=== PATIENT | male | born 1975 | race Caucasian/White ===

== ENCOUNTER 2020-05-22 10:53 | Emergency (ER) | payer OTHER, SELFPAY ==
[2020-05-22] MEDS ORDERED: Ketamine 50 MG/ML (10ML VIAL) ONE (11:13)
[2020-05-22 11:18] LABS: #Lymphocytes 0.9 thou/uL (1.20-3.40); #Monocytes 0.4 thou/uL (0.11-0.59); #Neutrophils 11.1 thou/uL (1.40-6.50); %Basophils 0.3 % (0.0-1.0); %Eosinophils 0.4 % (0.0-10.0); %Lymphocytes 7.2 % (21.0-51.0); %Monocytes 3.3 % (0.0-10.0); %Neutrophils 88.8 % (42.0-75.0); Hemoglobin 17.9 g/dL (14.0-18.0); Mean Corpuscular HGB CONC 36.2 g/dL (32.0-36.0); Mean Platelet Volume 7.4 fL (7.4-10.4); Platelet Count 251 thou/uL (130-400); RBC Distribution Width 12.4 % (11.5-14.5); Red Blood Cell (RBC) Count 5.26 mill/uL (4.70-6.10); White Blood Cell (WBC) Count 12.5 thou/uL (4.8-10.8)
[2020-05-22] MEDS ORDERED: Ondansetron PF 4 MG/2 ML Vial ONE (11:20)
--- NOTE | 2020-05-22 11:23 | RAD ---
XR Ankle Rt 2 View INDICATION: Right ankle injury after foot got caught underneath a cow COMPARISON: None. FINDINGS: Bones: There are mildly displaced fractures involving the medial, lateral and posterior malleolus con sistent with transient bimalleolar ankle fracture. The posterior malleolar component occupies approximately 10-20% of the posterior articular surface is displaced posteriorly. The lateral malleol us fracture fragment is displaced posteriorly and laterally one cortex width. The medial malleolus fracture fragment is displaced posteriorly and medially approximately 1 cm. Ankle mortise: There is posterior lateral dislocation of the talar dome in relationship to the tibial plafond. Talar Dome: Intact. Subtalar joint: Normal. Visualized hindfoot: Normal. Periarticular soft tissues: There is soft tissue swelling surrounding the ankle joint. IMPRESSION: 1. Trimalleolar ankle fracture or dislocation
[2020-05-22 11:25] LABS: Prothrombin Time 13.2 sec (12.0-14.7)
[2020-05-22 11:26] LABS: PTT 26.9 sec (22.9-36.1)
--- NOTE | 2020-05-22 11:36 | RAD ---
XR Ankle Rt 2 View INDICATION: Post reduction radiographs of the right ankle fracture dislocation COMPARISON: Prior right ankle radiographs performed at 11:01 AM FINDINGS: Bones: Trimalleolar ankle fracture demonstrates improved alignment Ankle mortise: The talar dome appears to now be seated under knee the tibial plafond. Talar Dome: Intact. Subtalar joint: Normal. Visualized hindfoot: Normal. Periarticular soft tissues: Soft tissue swelling is seen surrounding the right ankle. IMPRESSION: 1. Interval reduction of a trimalleolar fracture dislocation.
[2020-05-22 11:41] LABS: ALT (SGPT) 37 U/L (8-55); AST (SGOT) 20 U/L (5-34); Albumin 4.9 g/dL (3.5-5.0); Alkaline Phosphatase 69 U/L (40-110); Anion Gap 15 mmol/L (10-20); BUN (Urea Nitrogen) 14 mg/dL (8.9-20.6); Bilirubin, Total 0.6 mg/dL (0.2-1.2); Calc. Creatinine Clearance 0 mL/min (70-130); Calcium 9.7 mg/dL (7.8-10.44); Carbon Dioxide 25 mmol/L (22-29); Chloride 103 mmol/L (98-107); Glucose 133 mg/dL (70-105); Potassium 4.6 mmol/L (3.5-5.1); Protein, Total 7.9 g/dL (6.0-8.3); Sodium 138 mmol/L (136-145)
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
[2020-05-22] MEDS ORDERED: Boostrix 0.5 ML (Tdap) VIAL ONE (12:54)
== END 2020-05-22 13:48 | disposition home or self-care (01) ==
LOC: ERS 10:53
DX: S82.851A Displaced trimalleolar fracture of right lower leg, initial encounter for closed fracture (principal); X58.XXXA Exposure to other specified factors, initial encounter
CPT/HCPCS: 27818; 71045; 80053; 85025; 85610; 85730; 90471; 90715; 93005; 96374; 99152; G0390; J2405

== ENCOUNTER 2020-06-04 10:27 | Day surgery (SDC) | payer OTHER ==
[2020-06-03 14:37] VITALS: BMI 32.1
[~2020-06-04 10:27] MED LIST: Bupivacaine HCl 0.5%/Epinephrine 1:200,000/PF 30 ml Vial ONE; Dexamethasone 20 MG/5 ML VIAL ONE; Ketorolac Tromethamine 30 MG/ML VIAL ONE; Lidocaine 1% PF 5 ML VIAL ONE; Metoclopramide HCl 10 MG/2 ML VIAL ONE; Ondansetron PF 4 MG/2 ML Vial ONE; PROPOFOL 200 MG/20 ML VIAL ONE
[2020-06-04 11:16] LABS: #Lymphocytes 1.6 thou/uL (1.20-3.40); #Monocytes 0.3 thou/uL (0.11-0.59); #Neutrophils 4.9 thou/uL (1.40-6.50); %Basophils 0.7 % (0.0-1.0); %Eosinophils 0.7 % (0.0-10.0); %Lymphocytes 23.4 % (21.0-51.0); %Monocytes 4.7 % (0.0-10.0); %Neutrophils 70.6 % (42.0-75.0); Hemoglobin 18.4 g/dL (14.0-18.0); Mean Corpuscular HGB CONC 34.2 g/dL (32.0-36.0); Mean Corpuscular Hemoglobin 31.5 pg (27.0-31.0); Platelet Count 336 thou/uL (130-400); RBC Distribution Width 12.2 % (11.5-14.5); Red Blood Cell (RBC) Count 5.85 mill/uL (4.70-6.10); White Blood Cell (WBC) Count 6.9 thou/uL (4.8-10.8)
[2020-06-04] MEDS ORDERED: Fentanyl 100 MCG/2 ML VIAL ONE ×2 (11:31→12:54)
[2020-06-04] MEDS ORDERED: Midazolam HCl 2 mg/2 ml Vial ONE (11:31)
[2020-06-04] MEDS ORDERED: Lidocaine 1% (PF) 30 ML VIAL ONE (11:32)
[2020-06-04 12:03] LABS: SARS-CoV-2 NAA Rapid Test Not Detected (NotDetected)
[2020-06-04] MEDS ORDERED: Bupivacaine PF 0.5% 30 ML VIAL ONE (12:31)
--- NOTE | 2020-06-04 18:37 | RAD ---
RIGHT ANKLE: 06/04/20 Three fluoroscopic images are presented. INDICATIONS: Imaging during open reduction and internal fixation procedure. FINDINGS/IMPRESSION: These images demonstrate plate and screws transfixing the distal fibula in anatomic alignment. POS: AGW
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
== END 2020-06-04 16:35 | disposition home or self-care (01) ==
LOC: SDC 10:27
PROVIDERS: ATTEND Orthopaedic Surgery
PROC: 3E0T3BZ Introduction of Anesthetic Agent into Peripheral Nerves and Plexi, Percutaneous Approach (ICD-10-PCS; principal; 2020-06-04)
PROC: 0QSJ04Z Reposition Right Fibula with Internal Fixation Device, Open Approach (ICD-10-PCS; principal; 2020-06-04)
PROC: 0QSG04Z Reposition Right Tibia with Internal Fixation Device, Open Approach (ICD-10-PCS; principal; 2020-06-04)
DX: S82.841A Displaced bimalleolar fracture of right lower leg, initial encounter for closed fracture (principal); G89.18 Other acute postprocedural pain; X50.1XXA Overexertion from prolonged static or awkward postures, initial encounter
CPT/HCPCS: 76000; 85025; C1713; C1769; J0690; J1100; J1885; J2001; J2250; J2405; J2704; J2765; J3010; S0020; U0002